=== PATIENT | male | born 1980 | race Caucasian/White ===

== ENCOUNTER 2021-01-27 12:49 | Emergency (ER) | payer OTHER, SELFPAY ==
--- NOTE | ~2021-01-27 | XR_ITS ---
EXAMINATION: [id number] DATE: 01/27/2021 14:03 INDICATION: Neck pain. TECHNIQUE: 4 views of cervical spine were obtained. COMPARISON: Cervical spine CT 11/15/2016 FINDINGS: There is 11 degrees levoscoliosis of cervicothoracic spine. Vertebral body heights and inte rvertebral disc heights are normal. The facet joints are unremarkable. No central canal stenosis or p revertebral soft tissue swelling. IMPRESSION: 1. Cervicothoracic levoscoliosis. Reviewed, dictated and finalized at location A.
--- NOTE | ~2021-01-27 | XR_ITS ---
EXAMINATION: XR clavicle RT DATE: 01/27/2021 14:03 INDICATION: Right clavicle injury and pain. TECHNIQUE: 3 views of right clavicle were obtained. COMPARISON: None. FINDINGS: Bone alignment is normal. No acute fracture. There is a fragment of chronic ossification at the acromioclavicular joint. There is no arthritis. IMPRESSION: 1. No acute fracture. Reviewed, dictated and finalized at location A. IMPRESSION: 1. No acute fracture.
--- NOTE | ~2021-01-27 | XR_ITS ---
EXAMINATION: XR hip BI 2V w AP pelvis DATE: 01/27/2021 14:03 INDICATION: Hip pain. Injury. TECHNIQUE: An anteroposterior view of the pelvis and 2 views of each hip were obtained. COMPARISON: None. FINDINGS: Bone alignment is normal. No fracture. Joint spaces are well maintained. IMPRESSION: 1. No fracture. Reviewed, dictated and finalized at location A. IMPRESSION: 1. No fracture.
[2021-01-27 12:52] VITALS: BP 142/107; PULSE 83; RESP 18; TEMP 36.4; O2SAT 98
[2021-01-27] MEDS: ACETAMINOPHEN 500 MG TABLET 1000 MG PO (14:01)
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
== END 2021-01-27 15:23 | disposition home or self-care (01) ==
PROVIDERS: Emergency Provider Emergency Medicine
DX: S70.01XA Contusion of right hip, initial encounter (principal); S16.1XXA Strain of muscle, fascia and tendon at neck level, initial encounter; V03.00XA Pedestrian on foot injured in collision with car, pick-up truck or van in nontraffic accident, initial encounter
CPT/HCPCS: 72040; 73000; 73521; 99284; A9270